=== PATIENT | male | born 1960 | race African-American/Black ===

== ENCOUNTER 2019-04-09 11:20 | Inpatient (IN) | payer OTHER ==
[2019-04-09 12:28] VITALS: BMI 17.8
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
[2019-04-09] MEDS ORDERED: MAGNESIUM CITRATE 300 ML BOTTLE PO PRN (15:22)
[2019-04-09] MEDS ORDERED: METHOCARBAMOL 500 MG TABLET PO PRN (15:22)
[2019-04-09] MEDS ORDERED: IBUPROFEN 400 MG TABLET (FP) PO PRN (15:22)
[2019-04-09] MEDS ORDERED: ACETAMINOPHEN 325 MG TABLET (FP) PO PRN ×2 (15:22)
[2019-04-09] MEDS ORDERED: BISMUTH SUBSALICYLATE 524 MG/30 ML UD PO PRN (15:22)
[2019-04-09] MEDS ORDERED: chlordiazePOXIDE HCL 25 MG CAPSULE PO ONE (15:22)
[2019-04-09] MEDS ORDERED: chlordiazePOXIDE HCL 10 MG CAPSULE PO PRN (15:22)
[2019-04-09] MEDS ORDERED: MAG HYDROX/AL HYDROX/SIMETH 30 ML UNIT-DOSE CUP PO PRN (15:22)
[2019-04-09] MEDS ORDERED: MELATONIN 5 MG TABLETS PO PRN (15:22)
[2019-04-09] MEDS ORDERED: NICOTINE POLACRILEX 2 MG GUM BUC PRN (15:22)
[2019-04-09] MEDS ORDERED: hydrOXYzine PAMOATE 25 MG CAPSULE (FP) PO PRN (15:22)
[2019-04-09] MEDS ORDERED: ONDANSETRON *ODT* 4 MG TABLET SL PRN (15:22)
[2019-04-09] MEDS ORDERED: MAGNESIUM HYDROX 2400MG/30ML ORAL SUSPENSION 30 ML CUP PO PRN (15:22)
[2019-04-09] MEDS ORDERED: MENTHOL/PHENOL 1 EACH UD MM PRN (15:22)
[2019-04-09] MEDS: NICOTINE 14 MG/24 HOURS TOPICAL PATCH TD SCH (18:02)
[2019-04-09] MEDS: AMOX TR/POT CLAV 875MG/125MG TABLETS (FP) PO SCH (19:22)
[2019-04-09] MEDS: BUPRENORPHINE/NALOXONE 8 MG/2 MG FILM PACKET SL SCH (22:24)
[2019-04-09] MEDS: THIAMINE HCL 100 MG TABLET (FP) PO SCH (22:25)
[2019-04-09] MEDS: chlordiazePOXIDE HCL 25 MG CAPSULE PO SCH (22:25)
[2019-04-10] MEDS: chlordiazePOXIDE HCL 25 MG CAPSULE PO SCH ×3 (06:31→21:22)
[2019-04-10] MEDS: metFORMIN HCL 500 MG TABLET (FP) PO SCH (06:32)
[2019-04-10] MEDS ORDERED: INSULIN SLIDING SCALE (NOVOLOG) 1 VIAL SQ ONE (06:40)
[2019-04-10] MEDS: AMOX TR/POT CLAV 875MG/125MG TABLETS (FP) PO SCH ×2 (07:06→17:31)
[2019-04-10] MEDS: OXYBUTYNIN CHLORIDE 5 MG TABLET PO SCH (09:12)
[2019-04-10] MEDS: BUPRENORPHINE/NALOXONE 8 MG/2 MG FILM PACKET SL SCH ×2 (09:12→21:23)
[2019-04-10] MEDS: NICOTINE 14 MG/24 HOURS TOPICAL PATCH TD SCH (09:12)
[2019-04-10] MEDS: ENALAPRIL MALEATE 10 MG TABLET (FP) PO SCH (09:12)
[2019-04-10] MEDS: PRENATAL VITAMINS W/ FOLIC ACID TABLET (FP) PO SCH (09:12)
[2019-04-10] MEDS ORDERED: PATIENT'S OWN MEDICATION (NON-FORMULARY) (Bictegrav/Emtricit/Tenofov Ala 1 EACH) PO SCH (10:00)
[2019-04-10 10:58] LABS: HEMATOCRIT 33.7 % (35.4-49); HEMOGLOBIN 11.1 GM/dL (11.7-16.9); MCH 33.8 pg (25.7-33.7); MCHC 33.1 g/dl (32.0-35.9); MEAN CELL VOLUME 102.1 fl (80-96); MEAN PLT VOLUME 7.7 fl (7.5-11.1); PLATELET COUNT 438 K/MM3 (134-434); RDW 12.8 % (11.9-15.9); WHITE BLOOD COUNT 5.6 K/mm3 (4.0-10.0)
[2019-04-10 11:01] LABS: ALBUMIN 3.3 g/dl (3.4-5.0); BILIRUBIN,TOTAL 0.8 mg/dL (0.2-1); BLOOD UREA NITROGEN 23.8 mg/dL (7-18); CALCIUM 9.4 mg/dL (8.5-10.1); CREATININE 0.9 mg/dL (0.55-1.3); POTASSIUM 4.1 mmol/L (3.5-5.1); TOT PROT 7.4 g/dl (6.4-8.2)
--- NOTE | 2019-04-10 13:46 | PN ---
[facility] CIWA - CIWA Score Nausea/Vomitin-Mild Nausea/No Vomiting Muscle Tremors: 4-Moderate,w/Arms Extend Anxiety: 2 Agitation: 3 Paroxysmal Sweats: 3 Orientation: 0-Oriented Tacttile Disturbances: 0-None Auditory Disturbances: 0-None Visual Disturbances: 0-None Headache: 0-None Present CIWA-Ar Total Score: 13 S Progress Note (SOAP) Subjective: Anxious, vomited once before breakfast this morning. Feels better after vomiting. Patient seen eating his breakfast in his room without any problem/ complaints. Objective: 04/10/19 13:42 Last Vital Signs Temp Pulse Resp BP Pulse Ox 97.9 F 80 18 119/55 L 04/10/19 09:35 04/10/19 09:35 04/10/19 09:35 04/10/19 09:35 Laboratory Tests 04/10/19 04/10/19 04/10/19 06:30 08:00 08:00 WBC 5.6 RBC 3.30 L Hgb 11.1 L Hct 33.7 L MCV 102.1 H MCH 33.8 H MCHC 33.1 RDW 12.8 Plt Count 438 H MPV 7.7 Sodium 142 Potassium 4.1 Chloride 105 Carbon Dioxide 31 Anion Gap 7 L BUN 23.8 H Creatinine 0.9 Est GFR (CKD-EPI)AfAm 109.50 Est GFR (CKD-EPI)NonAf 94.48 POC Glucometer 257 Random Glucose 192 H Calcium 9.4 Total Bilirubin 0.8 AST 28 ALT 34 Alkaline Phosphatase 118 H Total Protein 7.4 Albumin 3.3 L Labs reviewed: serum glucose 192 (POC 257), mild anemia h/h 11.1/33.7, plt 438, bun 23.8 Assessment: 04/10/19 13:45 Withdrawal sxs Noted with hyperglycemia, anemia, thrombocytosis and azotemia Plan: Continue detox Encouraged PO water intake Hyperglycemia: secondary to DMT2, continue metformin, encourage adherence to diabetic diet Anemia, mild: most likely r/t alcoholism, follow up with PCP for management Thrombocytosis: repeat CBC Azotemia: encouraged PO water intake
[2019-04-10] MEDS: THIAMINE HCL 100 MG TABLET (FP) PO SCH (21:21)
[2019-04-11] MEDS: metFORMIN HCL 500 MG TABLET (FP) PO SCH (06:28)
[2019-04-11] MEDS: chlordiazePOXIDE 5 MG CAPSULE PO SCH ×3 (06:28→22:16)
[2019-04-11] MEDS: AMOX TR/POT CLAV 875MG/125MG TABLETS (FP) PO SCH ×2 (07:57→17:19)
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
[2019-04-11] MEDS: BUPRENORPHINE/NALOXONE 8 MG/2 MG FILM PACKET SL SCH ×2 (10:16→22:16)
[2019-04-11] MEDS: NICOTINE 14 MG/24 HOURS TOPICAL PATCH TD SCH (10:16)
[2019-04-11] MEDS: ENALAPRIL MALEATE 10 MG TABLET (FP) PO SCH (10:17)
[2019-04-11] MEDS: OXYBUTYNIN CHLORIDE 5 MG TABLET PO SCH (10:18)
[2019-04-11] MEDS: PRENATAL VITAMINS W/ FOLIC ACID TABLET (FP) PO SCH (10:18)
[2019-04-11 12:14] LABS: BASO % 0.6 % (0-2.0); EOS % 2.6 % (0-4.5); HEMATOCRIT 30.5 % (35.4-49); HEMOGLOBIN 10.1 GM/dL (11.7-16.9); LYMPH % 35.5 % (8-40); MCH 33.9 pg (25.7-33.7); MCHC 33.2 g/dl (32.0-35.9); MEAN CELL VOLUME 101.9 fl (80-96); MONO % 9.1 % (3.8-10.2); NEUT % 52.2 % (42.8-82.8); PLATELET COUNT 352 K/MM3 (134-434); RBC 2.99 M/mm3 (4.00-5.60); RDW 12.9 % (11.9-15.9); WHITE BLOOD COUNT 4.8 K/mm3 (4.0-10.0)
--- NOTE | 2019-04-11 12:24 | PN ---
[facility] CIWA - CIWA Score Nausea/Vomitin-Mild Nausea/No Vomiting Muscle Tremors: 2 Anxiety: 2 Agitation: 2 Paroxysmal Sweats: No Perspiration Orientation: 0-Oriented Tacttile Disturbances: 1-Very Mild Itch/Numbness Auditory Disturbances: 0-None Visual Disturbances: 0-None Headache: 2-Mild CIWA-Ar Total Score: 10 S Progress Note (SOAP) Subjective: alert,irritable,anxious,interrupted sleep,pain in the body Objective: 04/11/19 12:23 Vital Signs Temperature 98.1 F 04/11/19 09:46 Pulse Rate 85 04/11/19 09:46 Respiratory Rate 16 04/11/19 09:46 Blood Pressure 116/65 04/11/19 09:46 O2 Sat by Pulse Oximetry (%) Laboratory Last Values WBC 5.6 K/mm3 (4.0-10.0) 04/10/19 08:00 RBC 3.30 M/mm3 (4.00-5.60) L 04/10/19 08:00 Hgb 11.1 GM/dL (11.7-16.9) L 04/10/19 08:00 Hct 33.7 % (35.4-49) L 04/10/19 08:00 MCV 102.1 fl (80-96) H 04/10/19 08:00 MCH 33.8 pg (25.7-33.7) H 04/10/19 08:00 MCHC 33.1 g/dl (32.0-35.9) 04/10/19 08:00 RDW 12.8 % (11.9-15.9) 04/10/19 08:00 Plt Count 438 K/MM3 (134-434) H 04/10/19 08:00 MPV 7.7 fl (7.5-11.1) 04/10/19 08:00 Sodium 142 mmol/L (136-145) 04/10/19 08:00 Potassium 4.1 mmol/L (3.5-5.1) 04/10/19 08:00 Chloride 105 mmol/L (98-107) 04/10/19 08:00 Carbon Dioxide 31 mmol/L (21-32) 04/10/19 08:00 Anion Gap 7 MMOL/L (8-16) L 04/10/19 08:00 BUN 23.8 mg/dL (7-18) H 04/10/19 08:00 Creatinine 0.9 mg/dL (0.55-1.3) 04/10/19 08:00 Est GFR (CKD-EPI)AfAm 109.50 04/10/19 08:00 Est GFR (CKD-EPI)NonAf 94.48 04/10/19 08:00 POC Glucometer 312 UNITS (80-120) 04/11/19 06:27 Random Glucose 192 mg/dL (74-106) H 04/10/19 08:00 Calcium 9.4 mg/dL (8.5-10.1) 04/10/19 08:00 Total Bilirubin 0.8 mg/dL (0.2-1) 04/10/19 08:00 AST 28 U/L (15-37) 04/10/19 08:00 ALT 34 U/L (13-61) 04/10/19 08:00 Alkaline Phosphatase 118 U/L (45-117) H 04/10/19 08:00 Total Protein 7.4 g/dl (6.4-8.2) 04/10/19 08:00 Albumin 3.3 g/dl (3.4-5.0) L 04/10/19 08:00 RPR Titer Nonreactive (NONREACTIVE) 04/10/19 08:00 Assessment: 04/11/19 12:23 withdrawal symptom Plan: continue detox,change diet to shyann,ncs,glucerna 1 can po bid
[2019-04-11] MEDS: PATIENT'S OWN MEDICATION (NON-FORMULARY) (Biktarvy 1 TAB) PO SCH (14:26)
[2019-04-11] MEDS: ESCITALOPRAM OXALATE 10 MG TABLET (FP) PO SCH (14:28)
[2019-04-11] MEDS: THIAMINE HCL 100 MG TABLET (FP) PO SCH (22:17)
[2019-04-12] MEDS ORDERED: chlordiazePOXIDE HCL 10 MG CAPSULE PO PRN
[2019-04-12] MEDS: chlordiazePOXIDE HCL 10 MG CAPSULE PO SCH ×3 (06:39→22:21)
[2019-04-12] MEDS: metFORMIN HCL 500 MG TABLET (FP) PO SCH (07:40)
[2019-04-12] MEDS: AMOX TR/POT CLAV 875MG/125MG TABLETS (FP) PO SCH ×2 (07:40→18:25)
[2019-04-12] MEDS: OXYBUTYNIN CHLORIDE 5 MG TABLET PO SCH (10:08)
[2019-04-12] MEDS: PRENATAL VITAMINS W/ FOLIC ACID TABLET (FP) PO SCH (10:08)
[2019-04-12] MEDS: BUPRENORPHINE/NALOXONE 8 MG/2 MG FILM PACKET SL SCH ×2 (10:08→22:21)
[2019-04-12] MEDS: ENALAPRIL MALEATE 10 MG TABLET (FP) PO SCH (10:09)
[2019-04-12] MEDS: ESCITALOPRAM OXALATE 10 MG TABLET (FP) PO SCH (10:09)
[2019-04-12] MEDS: NICOTINE 14 MG/24 HOURS TOPICAL PATCH TD SCH (10:10)
[2019-04-12] MEDS: PATIENT'S OWN MEDICATION (NON-FORMULARY) (Biktarvy 1 TAB) PO SCH (10:10)
--- NOTE | 2019-04-12 11:47 | PN ---
[facility] CIWA - CIWA Score Nausea/Vomitin-No Nausea/No Vomiting Muscle Tremors: 1-None Visible, but [place] Anxiety: 2 Agitation: 2 Paroxysmal Sweats: No Perspiration Orientation: 0-Oriented Tacttile Disturbances: 1-Very Mild Itch/Numbness Auditory Disturbances: 0-None Visual Disturbances: 0-None Headache: 1-Very Mild CIWA-Ar Total Score: 7 BHS Progress Note (SOAP) Subjective: alert,irritable,anxious,interrupted sleep,nausea Objective: 04/12/19 11:45 Vital Signs Temperature 97.3 F L 04/12/19 09:40 Pulse Rate 89 04/12/19 09:40 Respiratory Rate 16 04/12/19 09:40 Blood Pressure 130/69 04/12/19 09:40 O2 Sat by Pulse Oximetry (%) 04/12/19 11:45 Laboratory 04/09/19 04/10/19 04/10/19 15:39 06:30 08:00 WBC 5.6 K/mm3 K/mm3 (4.0-10.0) RBC 3.30 M/mm3 L M/mm3 (4.00-5.60) Hgb 11.1 GM/dL L GM/dL (11.7-16.9) Hct 33.7 % L % (35.4-49) MCV 102.1 fl H fl (80-96) MCH 33.8 pg H pg (25.7-33.7) MCHC 33.1 g/dl g/dl (32.0-35.9) RDW 12.8 % % (11.9-15.9) Plt Count 438 K/MM3 H K/MM3 (134-434) MPV 7.7 fl fl (7.5-11.1) Absolute Neuts (auto) Neutrophils % Lymphocytes % Monocytes % Eosinophils % Basophils % Nucleated RBC % Sodium Potassium Chloride Carbon Dioxide Anion Gap BUN Creatinine Est GFR (CKD-EPI)AfAm Est GFR (CKD-EPI)NonAf POC Glucometer 263 UNITS UNITS 257 UNITS UNITS (80-120) (80-120) Random Glucose Calcium Total Bilirubin AST ALT Alkaline Phosphatase Total Protein Albumin RPR Titer 04/10/19 04/10/19 04/10/19 08:00 08:00 16:34 WBC RBC Hgb Hct MCV MCH MCHC RDW Plt Count MPV Absolute Neuts (auto) Neutrophils % Lymphocytes % Monocytes % Eosinophils % Basophils % Nucleated RBC % Sodium 142 mmol/L mmol/L (136-145) Potassium 4.1 mmol/L mmol/L (3.5-5.1) Chloride 105 mmol/L mmol/L (98-107) Carbon Dioxide 31 mmol/L mmol/L (21-32) Anion Gap 7 MMOL/L L MMOL/L (8-16) BUN 23.8 mg/dL H mg/dL (7-18) Creatinine 0.9 mg/dL mg/dL (0.55-1.3) Est GFR (CKD-EPI)AfAm 109.50 Est GFR (CKD-EPI)NonAf 94.48 POC Glucometer 158 UNITS UNITS (80-120) Random Glucose 192 mg/dL H mg/dL (74-106) Calcium 9.4 mg/dL mg/dL (8.5-10.1) Total Bilirubin 0.8 mg/dL mg/dL (0.2-1) AST 28 U/L U/L (15-37) ALT 34 U/L U/L (13-61) Alkaline Phosphatase 118 U/L H U/L (45-117) Total Protein 7.4 g/dl g/dl (6.4-8.2) Albumin 3.3 g/dl L g/dl (3.4-5.0) RPR Titer Nonreactive (NONREACTIVE) 04/11/19 04/11/19 04/11/19 06:27 09:00 16:28 WBC 4.8 K/mm3 K/mm3 (4.0-10.0) RBC 2.99 M/mm3 L M/mm3 (4.00-5.60) Hgb 10.1 GM/dL L GM/dL (11.7-16.9) Hct 30.5 % L % (35.4-49) MCV 101.9 fl H fl (80-96) MCH 33.9 pg H pg (25.7-33.7) MCHC 33.2 g/dl g/dl (32.0-35.9) RDW 12.9 % % (11.9-15.9) Plt Count 352 K/MM3 K/MM3 (134-434) MPV 8.0 fl fl (7.5-11.1) Absolute Neuts (auto) 2.5 K/mm3 K/mm3 (1.5-8.0) Neutrophils % 52.2 % % (42.8-82.8) Lymphocytes % 35.5 % % (8-40) Monocytes % 9.1 % % (3.8-10.2) Eosinophils % 2.6 % % (0-4.5) Basophils % 0.6 % % (0-2.0) Nucleated RBC % 0 % % (0-0) Sodium Potassium Chloride Carbon Dioxide Anion Gap BUN Creatinine Est GFR (CKD-EPI)AfAm Est GFR (CKD-EPI)NonAf POC Glucometer 312 UNITS UNITS 249 UNITS UNITS (80-120) (80-120) Random Glucose Calcium Total Bilirubin AST ALT Alkaline Phosphatase Total Protein Albumin RPR Titer 04/12/19 07:34 WBC RBC Hgb Hct MCV MCH MCHC RDW Plt Count MPV Absolute Neuts (auto) Neutrophils % Lymphocytes % Monocytes % Eosinophils % Basophils % Nucleated RBC % Sodium Potassium Chloride Carbon Dioxide Anion Gap BUN Creatinine Est GFR (CKD-EPI)AfAm Est GFR (CKD-EPI)NonAf POC Glucometer 229 UNITS UNITS (80-120) Random Glucose Calcium Total Bilirubin AST ALT Alkaline Phosphatase Total Protein Albumin RPR Titer Assessment: 04/12/19 11:46 withdrawal symptom Plan: continue detox librium regimen,bgm monitoring,obtain cane for ambulatory aid
[2019-04-12] MEDS: THIAMINE HCL 100 MG TABLET (FP) PO SCH (22:22)
[2019-04-13] MEDS ORDERED: chlordiazePOXIDE HCL 10 MG CAPSULE PO ONE (05:00)
[2019-04-13] MEDS: metFORMIN HCL 500 MG TABLET (FP) PO SCH (07:16)
[2019-04-13] MEDS: AMOX TR/POT CLAV 875MG/125MG TABLETS (FP) PO SCH (07:16)
--- NOTE | 2019-04-13 09:07 | DS ---
[facility] Detox Discharge Summary Admission Date: 04/09/19 Discharge Date: 04/13/19 - History Present History: Alcohol Dependence, Cocaine Dependence, Opioid Dependence - Physical Exam Results Vital Signs: Vital Signs Temperature 97.2 F L 04/13/19 07:15 Pulse Rate 75 04/13/19 07:15 Respiratory Rate 18 04/13/19 07:15 Blood Pressure 130/66 04/13/19 07:15 O2 Sat by Pulse Oximetry (%) Pertinent Admission Physical Exam Findings: pt arrived in withdrawals Vital Signs Temperature 97.2 F L 04/13/19 07:15 Pulse Rate 75 04/13/19 07:15 Respiratory Rate 18 04/13/19 07:15 Blood Pressure 130/66 04/13/19 07:15 O2 Sat by Pulse Oximetry (%) Laboratory Tests 04/09/19 04/10/19 04/10/19 15:39 06:30 08:00 WBC 5.6 RBC 3.30 L Hgb 11.1 L Hct 33.7 L MCV 102.1 H MCH 33.8 H MCHC 33.1 RDW 12.8 Plt Count 438 H MPV 7.7 Absolute Neuts (auto) Neutrophils % Lymphocytes % Monocytes % Eosinophils % Basophils % Nucleated RBC % Sodium Potassium Chloride Carbon Dioxide Anion Gap BUN Creatinine Est GFR (CKD-EPI)AfAm Est GFR (CKD-EPI)NonAf POC Glucometer 263 257 Random Glucose Calcium Total Bilirubin AST ALT Alkaline Phosphatase Total Protein Albumin RPR Titer 04/10/19 04/10/19 04/10/19 08:00 08:00 16:34 WBC RBC Hgb Hct MCV MCH MCHC RDW Plt Count MPV Absolute Neuts (auto) Neutrophils % Lymphocytes % Monocytes % Eosinophils % Basophils % Nucleated RBC % Sodium 142 Potassium 4.1 Chloride 105 Carbon Dioxide 31 Anion Gap 7 L BUN 23.8 H Creatinine 0.9 Est GFR (CKD-EPI)AfAm 109.50 Est GFR (CKD-EPI)NonAf 94.48 POC Glucometer 158 Random Glucose 192 H Calcium 9.4 Total Bilirubin 0.8 AST 28 ALT 34 Alkaline Phosphatase 118 H Total Protein 7.4 Albumin 3.3 L RPR Titer Nonreactive 04/11/19 04/11/19 04/11/19 06:27 09:00 16:28 WBC 4.8 RBC 2.99 L Hgb 10.1 L Hct 30.5 L MCV 101.9 H MCH 33.9 H MCHC 33.2 RDW 12.9 Plt Count 352 MPV 8.0 Absolute Neuts (auto) 2.5 Neutrophils % 52.2 Lymphocytes % 35.5 Monocytes % 9.1 Eosinophils % 2.6 Basophils % 0.6 Nucleated RBC % 0 Sodium Potassium Chloride Carbon Dioxide Anion Gap BUN Creatinine Est GFR (CKD-EPI)AfAm Est GFR (CKD-EPI)NonAf POC Glucometer 312 249 Random Glucose Calcium Total Bilirubin AST ALT Alkaline Phosphatase Total Protein Albumin RPR Titer 04/12/19 04/12/19 04/13/19 07:34 16:40 07:10 WBC RBC Hgb Hct MCV MCH MCHC RDW Plt Count MPV Absolute Neuts (auto) Neutrophils % Lymphocytes % Monocytes % Eosinophils % Basophils % Nucleated RBC % Sodium Potassium Chloride Carbon Dioxide Anion Gap BUN Creatinine Est GFR (CKD-EPI)AfAm Est GFR (CKD-EPI)NonAf POC Glucometer 229 263 244 Random Glucose Calcium Total Bilirubin AST ALT Alkaline Phosphatase Total Protein Albumin RPR Titer today pt is aaox3 ambulating no acute distress no s/s of withdrawal - Treatment Hospital Course: Detox Protocol Followed, Detoxed Safely, Responded well, Discharged Condition Good, Rehab Referral Accepted Patient has Accepted a Rehab Referral to: referral provided - Medication Discharge Medications: Ambulatory Orders Bictegrav/Emtricit/Tenofov Ala [Biktarvy 50-200-25 mg Tablet] 1 each PO DAILY Enalapril/Hydrochlorothiazide [Vaseretic 10-25 mg Tablet] 1 each PO DAILY Escitalopram Oxalate [Lexapro -] 10 mg PO DAILY 04/09/19 Oxybutynin Chloride 5 mg PO DAILY 04/09/19 metFORMIN HCL [Metformin HCl] 500 mg PO DAILY 04/09/19 - Diagnosis (1) Alcohol dependence, uncomplicated Current Visit: Yes Status: Chronic (2) Cocaine dependence Current Visit: Yes Status: Chronic Qualifiers: Substance use status: uncomplicated Qualified Code(s): F14.20 - Cocaine dependence, uncomplicated (3) HTN (hypertension) Current Visit: Yes Status: Chronic Qualifiers: Hypertension type: essential hypertension Qualified Code(s): I10 - Essential (primary) hypertension (4) Infected wound Current Visit: Yes Status: Acute (5) Diabetic neuropathy Current Visit: Yes Status: Chronic Qualifiers: Diabetes mellitus type: type 2 Diabetes mellitus complication detail: diabetic polyneuropathy Qualified Code(s): E11.42 - Type 2 diabetes mellitus with diabetic polyneuropathy (6) Encounter for monitoring Suboxone maintenance therapy Current Visit: Yes Status: Chronic (7) HIV (human immunodeficiency virus infection) Current Visit: Yes Status: Chronic Qualifiers: HIV symptom status: asymptomatic Qualified Code(s): Z21 - Asymptomatic human immunodeficiency virus [HIV] infection status (8) MDD (major depressive disorder), recurrent episode, moderate Current Visit: Yes Status: Chronic (9) Nicotine dependence Current Visit: Yes Status: Chronic Qualifiers: Nicotine product type: cigarettes Substance use status: uncomplicated Qualified Code(s): F17.210 - Nicotine dependence, cigarettes, uncomplicated (10) OAB (overactive bladder) Current Visit: Yes Status: Chronic (11) Opioid dependence on agonist therapy Current Visit: Yes Status: Chronic (12) Type 2 diabetes mellitus Current Visit: Yes Status: Chronic Qualifiers: Diabetes mellitus custodial insulin use: unspecified custodial insulin use status - AMA Did Patient Leave Against Medical Advice: No
[2019-04-13] MEDS: BUPRENORPHINE/NALOXONE 8 MG/2 MG FILM PACKET SL SCH (10:26)
[2019-04-13] MEDS: PATIENT'S OWN MEDICATION (NON-FORMULARY) (Biktarvy 1 TAB) PO SCH (10:26)
[2019-04-13] MEDS: PRENATAL VITAMINS W/ FOLIC ACID TABLET (FP) PO SCH (10:27)
[2019-04-13] MEDS: ENALAPRIL MALEATE 10 MG TABLET (FP) PO SCH (10:27)
[2019-04-13] MEDS: OXYBUTYNIN CHLORIDE 5 MG TABLET PO SCH (10:27)
[2019-04-13] MEDS: NICOTINE 14 MG/24 HOURS TOPICAL PATCH TD SCH (10:27)
[2019-04-13] MEDS: ESCITALOPRAM OXALATE 10 MG TABLET (FP) PO SCH (10:27)
[2019-04-13] MEDS ORDERED: HYDROCHLOROTHIAZIDE 25 MG TABLET (FP) PO SCH (10:45)
[2019-04-13 14:10] VITALS: BP 113/70; PULSE 96; TEMP 97.7
== END 2019-04-13 15:38 | disposition other institution (70) | DRG 773 ==
LOC: YASAS 11:20 → Y6N 16:01
PROVIDERS: ADMIT Allergy & Immunology; ATTEND Allergy & Immunology
PROC: HZ2ZZZZ Detoxification Services for Substance Abuse Treatment (ICD-10-PCS; principal; 2019-04-09)
DX: F10.230 Alcohol dependence with withdrawal, uncomplicated (principal); F11.20 Opioid dependence, uncomplicated; F14.20 Cocaine dependence, uncomplicated; F17.210 Nicotine dependence, cigarettes, uncomplicated; F33.1 Major depressive disorder, recurrent, moderate; I10 Essential (primary) hypertension; E11.65 Type 2 diabetes mellitus with hyperglycemia; E11.42 Type 2 diabetes mellitus with diabetic polyneuropathy; Z21 Asymptomatic human immunodeficiency virus [HIV] infection status; N32.81 Overactive bladder; D64.9 Anemia, unspecified; R79.89 Other specified abnormal findings of blood chemistry; D47.3 Essential (hemorrhagic) thrombocythemia; R00.0 Tachycardia, unspecified; L08.89 Other specified local infections of the skin and subcutaneous tissue; Z87.438 Personal history of other diseases of male genital organs; Z79.84 Long term (current) use of oral hypoglycemic drugs
CPT/HCPCS: 36415; 80053; 82962; 85025; 85027; 86593

== ENCOUNTER 2019-04-13 14:41 | Inpatient (IN) | payer OTHER ==
--- NOTE | 2019-04-13 12:17 | HP ---
[facility] Rehab Assess/Revision - Admission History Ad[facility]hab [facility] - Findings Detox History & Physical reviewed: Yes Concur with findings: Yes Inpatient Rehab Admission - Rehab Decision to Admit Inpatient rehab admission?: Yes - Initial Determination Are CD services needed?: Yes Free of communicable disease: Yes Not in need of hospitalization: Yes - Rehab Admission Criteria Previous failed treatment: Yes Poor recovery environment: Yes Comorbidities: Yes Lacks judgement: Yes Patient is meeting Inpatient Rehab admission criteria:: Yes
[~2019-04-13 14:41] MED LIST: ACETAMINOPHEN 325 MG TABLET (FP) PO PRN; IBUPROFEN 400 MG TABLET (FP) PO PRN; LOPERAMIDE HCL 2 MG CAPSULE PO PRN; MAG HYDROX/AL HYDROX/SIMETH 30 ML UNIT-DOSE CUP PO PRN; MAGNESIUM CITRATE 300 ML BOTTLE PO PRN; MAGNESIUM HYDROX 2400MG/30ML ORAL SUSPENSION 30 ML CUP PO PRN; MENTHOL/PHENOL 1 EACH UD MM PRN; NICOTINE POLACRILEX 4 MG GUM BUC PRN; P-EPHED 60MG/TRIPROLIDI 2.5MG TABLET PO PRN; guaiFENesin 200 MG/10 ML 10 ML UNIT-DOSE CUPS PO PRN; hydrOXYzine PAMOATE 50 MG CAPSULE (FP) PO PRN
[2019-04-13] MEDS: AMOX TR/POT CLAV 875MG/125MG TABLETS (FP) PO SCH (17:41)
[2019-04-13] MEDS: THIAMINE HCL 100 MG TABLET (FP) PO SCH (21:46)
[2019-04-13] MEDS: BUPRENORPHINE/NALOXONE 8 MG/2 MG FILM PACKET SL SCH (21:46)
[2019-04-13] MEDS: MELATONIN 5 MG TABLETS PO PRN (21:46)
[2019-04-14] MEDS: metFORMIN HCL 500 MG TABLET (FP) PO SCH (06:27)
[2019-04-14] MEDS: BICTEGRAV/EMTRICIT/TENOFOV (BIKTARVY) 50-200-25 MG TABLET PO SCH (07:02)
[2019-04-14] MEDS: AMOX TR/POT CLAV 875MG/125MG TABLETS (FP) PO SCH ×2 (07:02→16:34)
[2019-04-14] MEDS: NICOTINE 21 MG/24 HOURS TOPICAL PATCH TD SCH (10:05)
[2019-04-14] MEDS: ESCITALOPRAM OXALATE 10 MG TABLET (FP) PO SCH (10:05)
[2019-04-14] MEDS: HYDROCHLOROTHIAZIDE 25 MG TABLET (FP) PO SCH (10:05)
[2019-04-14] MEDS: OXYBUTYNIN CHLORIDE 5 MG TABLET PO SCH (10:05)
[2019-04-14] MEDS: BUPRENORPHINE/NALOXONE 8 MG/2 MG FILM PACKET SL SCH ×2 (10:05→21:09)
[2019-04-14] MEDS: PRENATAL VITAMINS W/ FOLIC ACID TABLET (FP) PO SCH (10:05)
[2019-04-14] MEDS: ENALAPRIL MALEATE 10 MG TABLET (FP) PO SCH (10:05)
[2019-04-14] MEDS ORDERED: MINERAL OIL/PETROLAT/WATER TOPICAL CREAM 113 GM JAR TP PRN (15:53)
[2019-04-14] MEDS ORDERED: COLLOIDAL OATMEAL 1 BAR EACH TP PRN (15:59)
[2019-04-14] MEDS: MELATONIN 5 MG TABLETS PO PRN (21:09)
[2019-04-14] MEDS: THIAMINE HCL 100 MG TABLET (FP) PO SCH (21:09)
[2019-04-15] MEDS: metFORMIN HCL 500 MG TABLET (FP) PO SCH (06:52)
[2019-04-15] MEDS: AMOX TR/POT CLAV 875MG/125MG TABLETS (FP) PO SCH ×2 (07:16→17:07)
[2019-04-15] MEDS: BICTEGRAV/EMTRICIT/TENOFOV (BIKTARVY) 50-200-25 MG TABLET PO SCH (07:16)
[2019-04-15] MEDS: BUPRENORPHINE/NALOXONE 8 MG/2 MG FILM PACKET SL SCH ×2 (10:19→21:45)
[2019-04-15] MEDS: PRENATAL VITAMINS W/ FOLIC ACID TABLET (FP) PO SCH (10:20)
[2019-04-15] MEDS: NICOTINE 21 MG/24 HOURS TOPICAL PATCH TD SCH (10:20)
[2019-04-15] MEDS: OXYBUTYNIN CHLORIDE 5 MG TABLET PO SCH (10:20)
[2019-04-15] MEDS: ESCITALOPRAM OXALATE 10 MG TABLET (FP) PO SCH (10:20)
[2019-04-15] MEDS: BACITRACIN 15 GM TUBE TOPICAL OINTMENT TP SCH (10:21)
[2019-04-15] MEDS: HYDROCHLOROTHIAZIDE 25 MG TABLET (FP) PO SCH (10:36)
[2019-04-15] MEDS: ENALAPRIL MALEATE 10 MG TABLET (FP) PO SCH (10:36)
[2019-04-15] MEDS: THIAMINE HCL 100 MG TABLET (FP) PO SCH (21:45)
[2019-04-16] MEDS: metFORMIN HCL 500 MG TABLET (FP) PO SCH (06:47)
[2019-04-16] MEDS: BICTEGRAV/EMTRICIT/TENOFOV (BIKTARVY) 50-200-25 MG TABLET PO SCH (07:18)
[2019-04-16] MEDS: AMOX TR/POT CLAV 875MG/125MG TABLETS (FP) PO SCH ×2 (07:18→16:57)
[2019-04-16] MEDS: PRENATAL VITAMINS W/ FOLIC ACID TABLET (FP) PO SCH (09:54)
[2019-04-16] MEDS: ENALAPRIL MALEATE 10 MG TABLET (FP) PO SCH (09:54)
[2019-04-16] MEDS: OXYBUTYNIN CHLORIDE 5 MG TABLET PO SCH (09:54)
[2019-04-16] MEDS: BACITRACIN 15 GM TUBE TOPICAL OINTMENT TP SCH (09:54)
[2019-04-16] MEDS: ESCITALOPRAM OXALATE 10 MG TABLET (FP) PO SCH (09:54)
[2019-04-16] MEDS: NICOTINE 21 MG/24 HOURS TOPICAL PATCH TD SCH (09:54)
[2019-04-16] MEDS: BUPRENORPHINE/NALOXONE 8 MG/2 MG FILM PACKET SL SCH ×2 (09:54→21:52)
[2019-04-16] MEDS: HYDROCHLOROTHIAZIDE 25 MG TABLET (FP) PO SCH (09:54)
[2019-04-16] MEDS: THIAMINE HCL 100 MG TABLET (FP) PO SCH (21:52)
[2019-04-17] MEDS ORDERED: PT OWN MED DRAWER 7, Y5N ONE (03:54)
[2019-04-17] MEDS: metFORMIN HCL 500 MG TABLET (FP) PO SCH (06:27)
[2019-04-17] MEDS: BICTEGRAV/EMTRICIT/TENOFOV (BIKTARVY) 50-200-25 MG TABLET PO SCH (07:29)
[2019-04-17] MEDS: AMOX TR/POT CLAV 875MG/125MG TABLETS (FP) PO SCH (07:30)
[2019-04-17] MEDS: ESCITALOPRAM OXALATE 10 MG TABLET (FP) PO SCH (10:29)
[2019-04-17] MEDS: NICOTINE 21 MG/24 HOURS TOPICAL PATCH TD SCH (10:29)
[2019-04-17] MEDS: BACITRACIN 15 GM TUBE TOPICAL OINTMENT TP SCH (10:29)
[2019-04-17] MEDS: BUPRENORPHINE/NALOXONE 8 MG/2 MG FILM PACKET SL SCH ×2 (10:29→21:33)
[2019-04-17] MEDS: ENALAPRIL MALEATE 10 MG TABLET (FP) PO SCH (10:29)
[2019-04-17] MEDS: OXYBUTYNIN CHLORIDE 5 MG TABLET PO SCH (10:29)
[2019-04-17] MEDS: HYDROCHLOROTHIAZIDE 25 MG TABLET (FP) PO SCH (10:29)
[2019-04-17] MEDS: PRENATAL VITAMINS W/ FOLIC ACID TABLET (FP) PO SCH (10:29)
[2019-04-17] MEDS: THIAMINE HCL 100 MG TABLET (FP) PO SCH (21:33)
[2019-04-18] MEDS: metFORMIN HCL 500 MG TABLET (FP) PO SCH (07:50)
[2019-04-18] MEDS: HYDROCHLOROTHIAZIDE 25 MG TABLET (FP) PO SCH (10:17)
[2019-04-18] MEDS: OXYBUTYNIN CHLORIDE 5 MG TABLET PO SCH (10:17)
[2019-04-18] MEDS: PRENATAL VITAMINS W/ FOLIC ACID TABLET (FP) PO SCH (10:18)
[2019-04-18] MEDS: ENALAPRIL MALEATE 10 MG TABLET (FP) PO SCH (10:18)
[2019-04-18] MEDS: ESCITALOPRAM OXALATE 10 MG TABLET (FP) PO SCH (10:20)
[2019-04-18] MEDS: NICOTINE 21 MG/24 HOURS TOPICAL PATCH TD SCH (10:22)
[2019-04-18] MEDS: BUPRENORPHINE/NALOXONE 8 MG/2 MG FILM PACKET SL SCH ×2 (10:22→21:20)
[2019-04-18] MEDS: BACITRACIN 15 GM TUBE TOPICAL OINTMENT TP SCH (10:22)
[2019-04-18] MEDS: BICTEGRAV/EMTRICIT/TENOFOV (BIKTARVY) 50-200-25 MG TABLET PO SCH (10:22)
[2019-04-18] MEDS ORDERED: INSULIN (NOVOLOG) ASPART 100 UNITS/ML 10ML VIAL ONE (16:25)
[2019-04-18] MEDS: INSULIN SLIDING SCALE (NOVOLOG) 1 VIAL SQ SCH (16:29)
[2019-04-18] MEDS: MELATONIN 5 MG TABLETS PO PRN (21:20)
[2019-04-18] MEDS: THIAMINE HCL 100 MG TABLET (FP) PO SCH (21:20)
[2019-04-19] MEDS ORDERED: INSULIN (NOVOLOG) ASPART 100 UNITS/ML 10ML VIAL ONE (06:16)
[2019-04-19] MEDS: INSULIN SLIDING SCALE (NOVOLOG) 1 VIAL SQ SCH ×2 (06:49→16:20)
[2019-04-19] MEDS: metFORMIN HCL 500 MG TABLET (FP) PO SCH (06:49)
[2019-04-19] MEDS: BICTEGRAV/EMTRICIT/TENOFOV (BIKTARVY) 50-200-25 MG TABLET PO SCH (07:24)
[2019-04-19] MEDS: BACITRACIN 15 GM TUBE TOPICAL OINTMENT TP SCH (10:18)
[2019-04-19] MEDS: OXYBUTYNIN CHLORIDE 5 MG TABLET PO SCH (10:18)
[2019-04-19] MEDS: BUPRENORPHINE/NALOXONE 8 MG/2 MG FILM PACKET SL SCH ×2 (10:18→21:32)
[2019-04-19] MEDS: HYDROCHLOROTHIAZIDE 25 MG TABLET (FP) PO SCH (10:18)
[2019-04-19] MEDS: NICOTINE 21 MG/24 HOURS TOPICAL PATCH TD SCH (10:20)
[2019-04-19] MEDS: PRENATAL VITAMINS W/ FOLIC ACID TABLET (FP) PO SCH (10:20)
[2019-04-19] MEDS: ESCITALOPRAM OXALATE 10 MG TABLET (FP) PO SCH (10:21)
[2019-04-19] MEDS: ENALAPRIL MALEATE 10 MG TABLET (FP) PO SCH (10:22)
[2019-04-19] MEDS: MELATONIN 5 MG TABLETS PO PRN (21:31)
[2019-04-19] MEDS: THIAMINE HCL 100 MG TABLET (FP) PO SCH (21:31)
[2019-04-20] MEDS: metFORMIN HCL 500 MG TABLET (FP) PO SCH (06:48)
[2019-04-20] MEDS: INSULIN SLIDING SCALE (NOVOLOG) 1 VIAL SQ SCH ×2 (06:48→16:55)
[2019-04-20] MEDS: BICTEGRAV/EMTRICIT/TENOFOV (BIKTARVY) 50-200-25 MG TABLET PO SCH (08:16)
[2019-04-20] MEDS ORDERED: PT OWN MED DRAWER 7, Y5N ONE (08:51)
[2019-04-20] MEDS: OXYBUTYNIN CHLORIDE 5 MG TABLET PO SCH (09:24)
[2019-04-20] MEDS: PRENATAL VITAMINS W/ FOLIC ACID TABLET (FP) PO SCH (09:24)
[2019-04-20] MEDS: ENALAPRIL MALEATE 10 MG TABLET (FP) PO SCH (09:24)
[2019-04-20] MEDS: NICOTINE 21 MG/24 HOURS TOPICAL PATCH TD SCH (09:24)
[2019-04-20] MEDS: ESCITALOPRAM OXALATE 10 MG TABLET (FP) PO SCH (09:24)
[2019-04-20] MEDS: HYDROCHLOROTHIAZIDE 25 MG TABLET (FP) PO SCH (09:24)
[2019-04-20] MEDS ORDERED: BUPRENORPHINE/NALOXONE 8 MG/2 MG FILM PACKET SL ONE (09:26)
[2019-04-20] MEDS: BACITRACIN 15 GM TUBE TOPICAL OINTMENT TP SCH (09:26)
[2019-04-20] MEDS: THIAMINE HCL 100 MG TABLET (FP) PO SCH (21:23)
[2019-04-20] MEDS: MELATONIN 5 MG TABLETS PO PRN (21:23)
[2019-04-20] MEDS: BUPRENORPHINE/NALOXONE 8 MG/2 MG FILM PACKET SL SCH (21:24)
[2019-04-21] MEDS: metFORMIN HCL 500 MG TABLET (FP) PO SCH (06:44)
[2019-04-21] MEDS: INSULIN SLIDING SCALE (NOVOLOG) 1 VIAL SQ SCH ×2 (06:44→17:12)
[2019-04-21] MEDS: BICTEGRAV/EMTRICIT/TENOFOV (BIKTARVY) 50-200-25 MG TABLET PO SCH (07:06)
[2019-04-21] MEDS: ENALAPRIL MALEATE 10 MG TABLET (FP) PO SCH (09:49)
[2019-04-21] MEDS: HYDROCHLOROTHIAZIDE 25 MG TABLET (FP) PO SCH (09:49)
[2019-04-21] MEDS: OXYBUTYNIN CHLORIDE 5 MG TABLET PO SCH (09:49)
[2019-04-21] MEDS: ESCITALOPRAM OXALATE 10 MG TABLET (FP) PO SCH (09:49)
[2019-04-21] MEDS: NICOTINE 21 MG/24 HOURS TOPICAL PATCH TD SCH (09:49)
[2019-04-21] MEDS: BACITRACIN 15 GM TUBE TOPICAL OINTMENT TP SCH (09:49)
[2019-04-21] MEDS: PRENATAL VITAMINS W/ FOLIC ACID TABLET (FP) PO SCH (09:50)
[2019-04-21] MEDS: BUPRENORPHINE/NALOXONE 8 MG/2 MG FILM PACKET SL SCH ×2 (09:50→21:27)
[2019-04-21] MEDS ORDERED: INSULIN (NOVOLOG) ASPART 100 UNITS/ML 10ML VIAL ONE (17:12)
[2019-04-21] MEDS: THIAMINE HCL 100 MG TABLET (FP) PO SCH (21:26)
[2019-04-21] MEDS: MELATONIN 5 MG TABLETS PO PRN (21:26)
[2019-04-22] MEDS: INSULIN SLIDING SCALE (NOVOLOG) 1 VIAL SQ SCH ×2 (07:20→16:40)
[2019-04-22] MEDS: metFORMIN HCL 500 MG TABLET (FP) PO SCH (07:21)
[2019-04-22] MEDS: BICTEGRAV/EMTRICIT/TENOFOV (BIKTARVY) 50-200-25 MG TABLET PO SCH (07:21)
[2019-04-22] MEDS: BUPRENORPHINE/NALOXONE 8 MG/2 MG FILM PACKET SL SCH ×2 (10:15→21:06)
[2019-04-22] MEDS: HYDROCHLOROTHIAZIDE 25 MG TABLET (FP) PO SCH (10:15)
[2019-04-22] MEDS: NICOTINE 21 MG/24 HOURS TOPICAL PATCH TD SCH (10:15)
[2019-04-22] MEDS: PRENATAL VITAMINS W/ FOLIC ACID TABLET (FP) PO SCH (10:15)
[2019-04-22] MEDS: OXYBUTYNIN CHLORIDE 5 MG TABLET PO SCH (10:15)
[2019-04-22] MEDS: ENALAPRIL MALEATE 10 MG TABLET (FP) PO SCH (10:15)
[2019-04-22] MEDS: ESCITALOPRAM OXALATE 10 MG TABLET (FP) PO SCH (10:15)
[2019-04-22] MEDS: BACITRACIN 15 GM TUBE TOPICAL OINTMENT TP SCH (10:19)
[2019-04-22] MEDS: THIAMINE HCL 100 MG TABLET (FP) PO SCH (21:04)
[2019-04-22] MEDS: MELATONIN 5 MG TABLETS PO PRN (21:04)
[2019-04-23] MEDS: metFORMIN HCL 500 MG TABLET (FP) PO SCH (07:02)
[2019-04-23] MEDS: BICTEGRAV/EMTRICIT/TENOFOV (BIKTARVY) 50-200-25 MG TABLET PO SCH (07:03)
[2019-04-23] MEDS: INSULIN SLIDING SCALE (NOVOLOG) 1 VIAL SQ SCH ×2 (07:06→16:34)
[2019-04-23] MEDS: HYDROCHLOROTHIAZIDE 25 MG TABLET (FP) PO SCH (09:36)
[2019-04-23] MEDS: PRENATAL VITAMINS W/ FOLIC ACID TABLET (FP) PO SCH (09:36)
[2019-04-23] MEDS: OXYBUTYNIN CHLORIDE 5 MG TABLET PO SCH (09:36)
[2019-04-23] MEDS: ENALAPRIL MALEATE 10 MG TABLET (FP) PO SCH (09:36)
[2019-04-23] MEDS: ESCITALOPRAM OXALATE 10 MG TABLET (FP) PO SCH (09:36)
[2019-04-23] MEDS ORDERED: PT OWN MED DRAWER 7, Y5N ONE (09:37)
[2019-04-23] MEDS: NICOTINE 21 MG/24 HOURS TOPICAL PATCH TD SCH (09:38)
[2019-04-23] MEDS: BACITRACIN 15 GM TUBE TOPICAL OINTMENT TP SCH (09:38)
[2019-04-23] MEDS: BUPRENORPHINE/NALOXONE 8 MG/2 MG FILM PACKET SL SCH ×2 (09:38→21:16)
[2019-04-23] MEDS: THIAMINE HCL 100 MG TABLET (FP) PO SCH (21:15)
[2019-04-23] MEDS: MELATONIN 5 MG TABLETS PO PRN (21:16)
[2019-04-24] MEDS: metFORMIN HCL 500 MG TABLET (FP) PO SCH (06:38)
[2019-04-24] MEDS: INSULIN SLIDING SCALE (NOVOLOG) 1 VIAL SQ SCH ×2 (06:38→16:37)
[2019-04-24] MEDS ORDERED: PT OWN MED DRAWER 7, Y5N ONE (07:33)
[2019-04-24] MEDS: BICTEGRAV/EMTRICIT/TENOFOV (BIKTARVY) 50-200-25 MG TABLET PO SCH (07:33)
[2019-04-24] MEDS: PRENATAL VITAMINS W/ FOLIC ACID TABLET (FP) PO SCH (10:10)
[2019-04-24] MEDS: HYDROCHLOROTHIAZIDE 25 MG TABLET (FP) PO SCH (10:10)
[2019-04-24] MEDS: ENALAPRIL MALEATE 10 MG TABLET (FP) PO SCH (10:10)
[2019-04-24] MEDS: OXYBUTYNIN CHLORIDE 5 MG TABLET PO SCH (10:10)
[2019-04-24] MEDS: ESCITALOPRAM OXALATE 10 MG TABLET (FP) PO SCH (10:10)
[2019-04-24] MEDS: NICOTINE 21 MG/24 HOURS TOPICAL PATCH TD SCH (10:11)
[2019-04-24] MEDS: BUPRENORPHINE/NALOXONE 8 MG/2 MG FILM PACKET SL SCH ×2 (10:12→21:27)
[2019-04-24] MEDS: BACITRACIN 15 GM TUBE TOPICAL OINTMENT TP SCH (10:13)
[2019-04-24] MEDS: THIAMINE HCL 100 MG TABLET (FP) PO SCH (21:27)
[2019-04-24] MEDS: MELATONIN 5 MG TABLETS PO PRN (21:27)
[2019-04-25] MEDS: metFORMIN HCL 500 MG TABLET (FP) PO SCH (06:56)
[2019-04-25] MEDS ORDERED: INSULIN (NOVOLOG) ASPART 100 UNITS/ML 10ML VIAL ONE ×2 (06:59→18:01)
[2019-04-25] MEDS: INSULIN SLIDING SCALE (NOVOLOG) 1 VIAL SQ SCH ×2 (07:28→16:46)
[2019-04-25] MEDS: BICTEGRAV/EMTRICIT/TENOFOV (BIKTARVY) 50-200-25 MG TABLET PO SCH (07:59)
[2019-04-25] MEDS: BACITRACIN 15 GM TUBE TOPICAL OINTMENT TP SCH (10:17)
[2019-04-25] MEDS: OXYBUTYNIN CHLORIDE 5 MG TABLET PO SCH (10:18)
[2019-04-25] MEDS: NICOTINE 21 MG/24 HOURS TOPICAL PATCH TD SCH (10:19)
[2019-04-25] MEDS: BUPRENORPHINE/NALOXONE 8 MG/2 MG FILM PACKET SL SCH ×2 (10:21→21:36)
[2019-04-25] MEDS: HYDROCHLOROTHIAZIDE 25 MG TABLET (FP) PO SCH (10:22)
[2019-04-25] MEDS: PRENATAL VITAMINS W/ FOLIC ACID TABLET (FP) PO SCH (10:22)
[2019-04-25] MEDS: ENALAPRIL MALEATE 10 MG TABLET (FP) PO SCH (10:23)
[2019-04-25] MEDS: ESCITALOPRAM OXALATE 10 MG TABLET (FP) PO SCH (10:23)
[2019-04-25] MEDS: THIAMINE HCL 100 MG TABLET (FP) PO SCH (21:36)
[2019-04-26] MEDS: INSULIN SLIDING SCALE (NOVOLOG) 1 VIAL SQ SCH ×2 (07:27→16:40)
[2019-04-26] MEDS: metFORMIN HCL 500 MG TABLET (FP) PO SCH (07:27)
[2019-04-26] MEDS: BICTEGRAV/EMTRICIT/TENOFOV (BIKTARVY) 50-200-25 MG TABLET PO SCH (07:27)
[2019-04-26] MEDS: ENALAPRIL MALEATE 10 MG TABLET (FP) PO SCH (09:49)
[2019-04-26] MEDS: HYDROCHLOROTHIAZIDE 25 MG TABLET (FP) PO SCH (09:49)
[2019-04-26] MEDS: ESCITALOPRAM OXALATE 10 MG TABLET (FP) PO SCH (09:50)
[2019-04-26] MEDS: OXYBUTYNIN CHLORIDE 5 MG TABLET PO SCH (09:50)
[2019-04-26] MEDS: BUPRENORPHINE/NALOXONE 8 MG/2 MG FILM PACKET SL SCH ×2 (09:50→21:26)
[2019-04-26] MEDS: PRENATAL VITAMINS W/ FOLIC ACID TABLET (FP) PO SCH (09:50)
[2019-04-26] MEDS: NICOTINE 21 MG/24 HOURS TOPICAL PATCH TD SCH (09:51)
[2019-04-26] MEDS: BACITRACIN 15 GM TUBE TOPICAL OINTMENT TP SCH (09:53)
--- NOTE | 2019-04-26 13:33 | PN ---
S Progress Note Note: Patient is scheduled for discharge tomorrow. Script for 30 days supply of Lexapro 10 mg/day will be electronically transmitted to [facility] at [address] [place], [place] [id number]
[2019-04-26] MEDS ORDERED: INSULIN (NOVOLOG) ASPART 100 UNITS/ML 10ML VIAL ONE ×2 (16:38→21:42)
--- NOTE | 2019-04-26 16:45 | DS ---
[facility] Rehab Discharge Summary - [facility] Rehab Discharge Summary Admission Date: 04/13/19 Discharge Date: 04/27/19 - History Present History: Alcohol dependence, Cocaine dependence, Opioid dependence Additional Comments: Pt is a 58 y/o male admitted to rehab and scheduled to discharge on 04/27/19. Pertinent Past History: HIV+ HTN Type 2 DM Diabetic Neuropathy Overactive Bladder - Discharge Physical Exam Vital Signs: Vital Signs Temperature 97.5 F L 04/26/19 07:22 Pulse Rate 97 H 04/26/19 09:54 Respiratory Rate 81 H 04/26/19 07:22 Blood Pressure 127/71 04/26/19 09:54 O2 Sat by Pulse Oximetry (%) Alert o x 3 nad oob ambulating with steady gait cardiac:s1 s2,rrr lungs:cta,saida. extremities:no edema,full ROM,skin intact. Pertinent Admission Physical Exam Findings: Laboratory Tests 04/14/19 04/14/19 04/15/19 06:25 16:33 06:50 POC Glucometer 251 298 261 04/15/19 04/16/19 04/17/19 17:06 06:47 06:14 POC Glucometer 266 253 247 04/17/19 04/18/19 04/19/19 16:49 16:26 06:02 POC Glucometer 256 231 212 04/19/19 04/20/19 04/20/19 17:37 06:37 16:53 POC Glucometer 246 199 213 04/21/19 04/21/19 04/22/19 06:02 17:08 07:09 POC Glucometer 196 209 194 04/23/19 04/23/19 04/24/19 06:59 16:31 06:36 POC Glucometer 171 251 170 04/24/19 04/25/19 04/25/19 16:35 06:19 16:56 POC Glucometer 222 201 220 04/26/19 04/26/19 04/27/19 06:30 16:39 06:11 POC Glucometer 185 162 183 Pt had infected wound of Right Hallux on detox admission and completed Augmentin therapy. Pt was reminded to follow up with primary care for medical management. - Treatment Discharge Condition: Discharge condition good Hospital Course: Rehabilitated safely and responded well CD aftercare referral accepted - Medication Discharge Medications: Ambulatory Orders Enalapril/Hydrochlorothiazide [Vaseretic 10-25 mg Tablet] 1 each PO DAILY Buprenorphine/Naloxone 04/13/19 Bictegrav/Emtricit/Tenofov Ala [Biktarvy 50-200-25 mg Tablet] 1 each PO DAILY # 30 tablet 04/26/19 Enalapril Maleate [Vasotec -] 10 mg PO DAILY #30 tablet 04/26/19 Escitalopram Oxalate [Lexapro -] 10 mg PO DAILY #30 tablet 04/26/19 Oxybutynin Chloride 5 mg PO DAILY #14 tablet 04/26/19 metFORMIN HCL [Metformin HCl] 500 mg PO DAILY #30 tablet 04/26/19 - Medication-Assisted Treatment (MAT) Medication-Assisted Treatment (MAT): No Medication Prescribed: Suboxone - Discharge Instructions Diet, activity, other medical instructions: Diet: Activity: Other medical instructions: - Diagnosis (1) Alcohol dependence, uncomplicated Status: Chronic (2) Cocaine dependence Status: Chronic Qualifiers: Substance use status: uncomplicated Qualified Code(s): F14.20 - Cocaine dependence, uncomplicated (3) Diabetic neuropathy Status: Chronic Qualifiers: Diabetes mellitus type: type 2 Diabetes mellitus complication detail: diabetic polyneuropathy Qualified Code(s): E11.42 - Type 2 diabetes mellitus with diabetic polyneuropathy (4) Encounter for monitoring Suboxone maintenance therapy Status: Chronic (5) HIV (human immunodeficiency virus infection) Status: Chronic Qualifiers: HIV symptom status: asymptomatic Qualified Code(s): Z21 - Asymptomatic human immunodeficiency virus [HIV] infection status (6) HTN (hypertension) Status: Chronic Qualifiers: Hypertension type: essential hypertension Qualified Code(s): I10 - Essential (primary) hypertension (7) Nicotine dependence Status: Chronic Qualifiers: Nicotine product type: cigarettes Substance use status: uncomplicated Qualified Code(s): F17.210 - Nicotine dependence, cigarettes, uncomplicated (8) OAB (overactive bladder) Status: Chronic (9) Type 2 diabetes mellitus Status: Chronic Qualifiers: Diabetes mellitus rodent exterminator insulin use: unspecified [facility]cf insulin use status - Follow-up Referral Minutes to complete discharge: 30 - AMA Did Patient Leave Against Medical Advice: No Additional Comments: Pt has own suboxone at home /provider to follow up and reports he has no need for courtesy Rx.
[2019-04-26] MEDS: THIAMINE HCL 100 MG TABLET (FP) PO SCH (21:25)
[2019-04-26] MEDS: MELATONIN 5 MG TABLETS PO PRN (21:25)
[2019-04-27] MEDS: metFORMIN HCL 500 MG TABLET (FP) PO SCH (06:44)
[2019-04-27] MEDS: INSULIN SLIDING SCALE (NOVOLOG) 1 VIAL SQ SCH (06:44)
[2019-04-27 07:06] VITALS: BP 136/70; PULSE 77; TEMP 97.3
[2019-04-27] MEDS: BICTEGRAV/EMTRICIT/TENOFOV (BIKTARVY) 50-200-25 MG TABLET PO SCH (07:19)
[2019-04-27] MEDS ORDERED: PT OWN MED DRAWER 7, Y5N ONE (08:35)
[2019-04-27] MEDS: PRENATAL VITAMINS W/ FOLIC ACID TABLET (FP) PO SCH (09:03)
[2019-04-27] MEDS: HYDROCHLOROTHIAZIDE 25 MG TABLET (FP) PO SCH (09:03)
[2019-04-27] MEDS: OXYBUTYNIN CHLORIDE 5 MG TABLET PO SCH (09:03)
[2019-04-27] MEDS: ENALAPRIL MALEATE 10 MG TABLET (FP) PO SCH (09:03)
[2019-04-27] MEDS: NICOTINE 21 MG/24 HOURS TOPICAL PATCH TD SCH (09:03)
[2019-04-27] MEDS: ESCITALOPRAM OXALATE 10 MG TABLET (FP) PO SCH (09:03)
[2019-04-27] MEDS: BACITRACIN 15 GM TUBE TOPICAL OINTMENT TP SCH (09:03)
[2019-04-27] MEDS: BUPRENORPHINE/NALOXONE 8 MG/2 MG FILM PACKET SL SCH (09:04)
--- NOTE | 2019-04-27 14:42 | PN ---
[facility] Progress Note Note: Pt was discharged today as scheduled in medically stable condition. Vital Signs - 24 hr 04/27/19 04/27/19 00:30 07:04 Temperature 97.3 F L Pulse Rate 77 Respiratory 18 18 Rate Blood Pressure 136/70 D/w pt to follow up with referrals as recommended.
== END 2019-04-27 09:30 | disposition home or self-care (01) | DRG 772 ==
LOC: YASAS 14:41 → Y3W 14:43
PROVIDERS: ADMIT Neuromusculoskeletal Medicine & OMM; ATTEND Neuromusculoskeletal Medicine & OMM
PROC: HZ42ZZZ Group Counseling for Substance Abuse Treatment, Cognitive-Behavioral (ICD-10-PCS; principal; 2019-04-13)
DX: F10.20 Alcohol dependence, uncomplicated (principal); F11.20 Opioid dependence, uncomplicated; F14.20 Cocaine dependence, uncomplicated; F17.210 Nicotine dependence, cigarettes, uncomplicated; I10 Essential (primary) hypertension; E11.42 Type 2 diabetes mellitus with diabetic polyneuropathy; Z21 Asymptomatic human immunodeficiency virus [HIV] infection status; N32.81 Overactive bladder; D64.9 Anemia, unspecified
CPT/HCPCS: 82962

== ENCOUNTER 2024-12-10 12:31 | Inpatient (IN) | payer OTHER ==
[2024-12-10 13:10] VITALS: BMI 19.9
[2024-12-10] MEDS ORDERED: NALOXONE (NARCAN) HCL 4 MG/0.1 ML SPRAY NS PRN (14:52)
[2024-12-10] MEDS ORDERED: LOPERAMIDE HCL 2 MG CAPSULE PO PRN (14:52)
[2024-12-10] MEDS ORDERED: MAGNESIUM HYDROX 2400MG/30ML ORAL SUSPENSION 30 ML CUP PO PRN (14:52)
[2024-12-10] MEDS ORDERED: ACETAMINOPHEN 325 MG TABLET (FP) PO PRN (14:52)
[2024-12-10] MEDS ORDERED: BENZONATATE 200 MG CAPSULE PO PRN (14:52)
[2024-12-10] MEDS ORDERED: NICOTINE POLACRILEX 2 MG GUM BUC PRN (14:52)
[2024-12-10] MEDS ORDERED: MAG HYDROX/AL HYDROX/SIMETH 30 ML UNIT-DOSE CUP PO PRN (14:52)
[2024-12-10] MEDS ORDERED: NICOTINE POLACRILEX 2 MG LOZENGE BC PRN (14:52)
[2024-12-10] MEDS ORDERED: guaiFENesin 600 MG TABLET.ER (FP) PO PRN (14:52)
[2024-12-10] MEDS ORDERED: BENZOCAINE/MENTHOL (CHLORASEPTIC ) LOZENGE MM PRN (14:52)
[2024-12-10] MEDS ORDERED: POLYETHYLENE GLYCOL (HEALTHYLAX) 3350 17 GM PACKET PO PRN (14:52)
[2024-12-10] MEDS: INSULIN ASPART SLIDING SCALE (NOVOLOG) 1 VIAL SQ SCH (17:04)
[2024-12-10] MEDS: VITAMINS A AND D TOPICAL OINTMENT TP SCH (18:03)
[2024-12-10] MEDS: TUBERCULIN PPD 5 TU/0.1ML SYRINGE (IN PATIENT USE ONLY) ID ONE (18:38)
[2024-12-10] MEDS: MELATONIN 5 MG TABLETS PO SCH (21:39)
[2024-12-10] MEDS: THIAMINE 100 MG TABLET PO SCH (21:39)
[2024-12-11] MEDS: BICTEGRAV/EMTRICIT/TENOFOV (BIKTARVY) 50-200-25 MG TABLET PO SCH (09:20)
[2024-12-11] MEDS: ESCITALOPRAM OXALATE 10 MG TABLET PO SCH (09:20)
[2024-12-11] MEDS: PRENATAL VITAMINS W/ FOLIC ACID TABLET (FP) PO SCH (09:20)
[2024-12-11] MEDS: COLLAGENASE CLOSTRIDIUM HIST. 30 GRAMS TUBE TP SCH (09:29)
[2024-12-11 09:36] LABS: HEMATOCRIT 29.2 % (40.1-51.0); HEMOGLOBIN 9.1 g/dL (13.7-17.5); MCHC 31.2 g/dl (32.3-36.5); MEAN CELL VOLUME 93.9 fl (79.0-92.2); MEAN PLT VOLUME 10.4 fl (9.4-12.4); PLATELET COUNT 254 x10^3/uL (163-337)
[2024-12-11] MEDS: IBUPROFEN 600 MG TABLET (FP) PO PRN (09:39)
[2024-12-11 09:45] LABS: POTASSIUM 3.6 mmol/L (3.5-5.1)
[2024-12-11 10:02] LABS: CALCIUM 8.6 mg/dL (8.5-10.1)
[2024-12-11 10:03] LABS: ALBUMIN 2.1 g/dl (3.4-5.0); BLOOD UREA NITROGEN 8.3 mg/dL (7-18)
[2024-12-11 10:06] LABS: CREATININE 0.4 mg/dL (0.55-1.3)
[2024-12-11 10:07] LABS: TOT PROT 6.2 g/dl (6.4-8.2)
[2024-12-11 10:08] LABS: BILIRUBIN,TOTAL 0.6 mg/dL (0.2-1)
[2024-12-11] MEDS: BUPRENORPHINE/NALOXONE 8 MG/2 MG FILM PACKET SL SCH (12:02)
[2024-12-11 13:15] LABS: URINE APPEARANCE CLEAR; URINE BILIRUBIN NEGATIVE (NEGATIVE); URINE COLOR YELLOW; URINE GLUCOSE (UA) NEGATIVE (NEGATIVE); URINE KETONE NEGATIVE (NEGATIVE); URINE LEUK ESTERASE NEGATIVE (NEGATIVE); URINE NITRITE NEGATIVE (NEGATIVE); URINE PROTEIN NEGATIVE (NEGATIVE)
[2024-12-11] MEDS: ATORVASTATIN CA 20 MG TABLET (FP) PO SCH (21:42)
[2024-12-12] MEDS ORDERED: INSULIN ASPART SLIDING SCALE (NOVOLOG) 1 VIAL SQ ONE (07:45)
[2024-12-12] MEDS: ENALAPRIL MALEATE 2.5 MG TABLET PO SCH (11:32)
[2024-12-12] MEDS: BACITRACIN 0.9 GM PACKET TP SCH (13:11)
[2024-12-12] MEDS: BICTEGRAV/EMTRICIT/TENOFOV (BIKTARVY) 50-200-25 MG TABLET PO SCH (13:11)
[2024-12-13] MEDS: IBUPROFEN 400 MG TABLET (FP) PO PRN (05:30)
[2024-12-13] MEDS ORDERED: BICTEGRAV/EMTRICIT/TENOFOV (BIKTARVY) 50-200-25 MG TABLET PO SCH (08:00)
[2024-12-13] MEDS: DOCUSATE SODIUM 100 MG CAPSULE (FP) PO PRN (14:25)
[2024-12-14 05:51] VITALS: RESP 18
[2024-12-14 13:33] VITALS: BP 105/51; PULSE 92; TEMP 97.3
== END 2024-12-14 23:46 | disposition short-term general hospital (02) | DRG 772 ==
LOC: YASAS 12:31 → Y3NR 15:54 → Y3W 12-12 09:48
PROVIDERS: ADMIT Psychiatry & Neurology Pain Medicine; ATTEND Psychiatry & Neurology Pain Medicine
PROC: HZ42ZZZ Group Counseling for Substance Abuse Treatment, Cognitive-Behavioral (ICD-10-PCS; principal; 2024-12-10)
DX: F11.20 Opioid dependence, uncomplicated (principal); F10.20 Alcohol dependence, uncomplicated; F14.20 Cocaine dependence, uncomplicated; F33.1 Major depressive disorder, recurrent, moderate; Z21 Asymptomatic human immunodeficiency virus [HIV] infection status; I95.9 Hypotension, unspecified; E11.42 Type 2 diabetes mellitus with diabetic polyneuropathy; Z79.4 Long term (current) use of insulin; R62.7 Adult failure to thrive; Z68.1 Body mass index [BMI] 19.9 or less, adult; L89.219 Pressure ulcer of right hip, unspecified stage; Z89.511 Acquired absence of right leg below knee; Z99.89 Dependence on other enabling machines and devices; Z79.899 Other long term (current) drug therapy
CPT/HCPCS: 36415; 80053; 80305; 80307; 81003; 82962; 85027; 86780; 87811; 93005; 93010